=== PATIENT | female | born 1970 | race Caucasian/White ===

== ENCOUNTER → 2018-04-05 16:15 | Outpatient (CLI) | payer BC, SELFPAY ==
--- NOTE | 2018-04-05 16:17 | MM_ITS ---
MM Dig screening mamm BI w/CAD ORDERING PHYSICIAN : Tesfaye Avery MD PATIENT AGE: 48 years GENDER: Female COMPARISON: August,, July 2015, February 2013 INDICATION: ITS.REASON: Routine Screening Mammogram no hormones. No new complaints. Family history. Mother breast cancer age 58. Maternal grandmother in her 60s. Maternal aunt in her 50s TECHNIQUE: Standard CC and MLO images were obtained. R2 CAD reviewed. FINDINGS: Moderate density breast with heterogeneous breast pattern. Prior films are very helpful in supporting this pattern is similar. This asymmetric architecture appears stable with no significant new findings. RIGHT BREAST:Stable follow-up in one year. No areas of concern LEFT BREAST:The asymmetric island of glandular tissue in the deep left breast towards axilla is unchanged IMPRESSION: Stable mammogram No significant interval change. Stable asymmetric heterogeneous breast pattern but with no significant new areas of concern BI-RADS Category: 2 Benign Finding(s) RECOMMENDED FOLLOW-UP: 1YR 1 YEAR FOLLOW-UP (A letter has been sent to the patient regarding results of the study.)
== END ==
PROVIDERS: Family Provider Family Medicine; PCP Family Medicine; Visit Provider Nurse Practitioner Obstetrics & Gynecology
DX: Z12.31 Encounter for screening mammogram for malignant neoplasm of breast (principal)
CPT/HCPCS: 77067

== ENCOUNTER → 2019-05-09 07:58 | Outpatient (CLI) | payer BC, SELFPAY ==
[2019-05-09 08:16] LABS: Basophils % 0.6 % (0.1-2.0); Eosinophils # 0.2 K/mm3 (0.0-0.4); Eosinophils % 3.6 % (0.1-12.0); Hematocrit 41.1 % (37.0-47.0); Hemoglobin 13.2 g/dL (12.2-16.2); Lymphocytes # 1.5 K/mm3 (0.7-4.5); Lymphocytes % 29.2 % (10-50); Mean Corpuscular HGB Conc 32.2 g/dL (31.8-35.4); Mean Corpuscular Volume 93.1 fl (81-99); Mean Platelet Volume 8.3 fl (7.4-10.4); Monocytes # 0.3 K/mm3 (0.1-1.0); Monocytes % 6.2 % (1.7-9.3); Neutrophils % 60.4 % (37.0-80.0); Platelet Count 275 K/mm3 (142-424); Red Blood Count 4.41 M/mm3 (4.20-5.40)
[2019-05-09 08:59] LABS: Alanine Aminotransferase 69 U/L (12-78); Albumin Level 4.1 gm/dL (3.4-5.0); Albumin/Globulin Ratio 1.4 (1.1-1.8); Alkaline Phosphatase 110 U/L (46-116); Anion Gap 13.4 mEq/L (5-15); Aspartate Amino Transferase 27 U/L (15-37); Bilirubin,Total 0.5 mg/dL (0.2-1.0); Blood Urea Nitrogen 17 mg/dL (7-18); Calcium 9.1 mg/dL (8.5-10.1); Carbon Dioxide 27 mmol/L (21.0-32.0); Chloride 104 mmol/L (98-107); Chol/HDL Ratio 5.4 (1-3.5); Cholesterol 199 mg/dL (140-200); Estimated Glomerular Filt Rate 66 ml/min (>60); GFR (African American) 80 ML/MIN (>60); Globulin 2.9 gm/dl (1.3-3.2); Glucose 109 mg/dL (74-106); HDL Cholesterol 37 mg/dL (29-89); LDL Cholesterol 135 mg/dL (0-130); Potassium 4.4 mmoL/L (3.5-5.1); Sodium 140 mmol/L (136-145); Triglycerides 137 mg/dL (30-200); VLDL Cholesterol 27 mg/dL (0-40)
== END ==
PROVIDERS: Visit Provider Family Medicine
DX: Z00.00 Encounter for general adult medical examination without abnormal findings (principal)
CPT/HCPCS: 36415; 80053; 80061; 85025

== ENCOUNTER → 2019-06-10 16:41 | Outpatient (CLI) | payer BC, SELFPAY ==
--- NOTE | 2019-06-10 16:44 | MM_ITS ---
PROCEDURE: MM DIG SCREENING MAMM BI W/CAD CLINICAL INDICATION: routine screening mammogram There is a history of breast cancer in patient's mother maternal grandmother and aunt all diagnosed after menopause COMPARISON: [facility]MSB DIG MAMM-SCREEN JAGDISH from 07/27/2015 [facility] DIG MAMM-SCREEN JAGDISH from 08/25/2016 [facility] MM Dig screening mamm BI w/CAD from 04/05/2018 TECHNIQUE: Standard CC and MLO images were obtained. R2 CAD reviewed. FINDINGS: Moderate somewhat heterogenic fibroglandular densities are seen in the central portions of both breast slightly more diffuse right breast than left. There is no new or suspicious lesion in either breast and no suspicious microcalcifications. IMPRESSION: Fibrofatty parenchyma with no suspicious lesions seen BI-RAD Category: 1 Negative FOLLOW-UP: 1YR 1 Year Follow-up (A letter has been sent to the patient regarding results of the study.) Dictated by: Dr. Nagi Harrison MD 06/14/2019 16:[address] Nagi Harrison MD in [place] 06/14/2019 16:01
== END ==
PROVIDERS: PCP Family Medicine; Visit Provider Nurse Practitioner Obstetrics & Gynecology
DX: Z12.31 Encounter for screening mammogram for malignant neoplasm of breast (principal)
CPT/HCPCS: 77067

== ENCOUNTER → 2021-05-06 07:40 | Outpatient (CLI) | payer BC, SELFPAY ==
[2021-05-06 08:04] LABS: Basophils % 0.9 % (0.1-2.0); Eosinophils # 0.2 K/mm3 (0.0-0.4); Eosinophils % 4.4 % (0.1-12.0); Hematocrit 41.7 % (37.0-47.0); Hemoglobin 13.7 g/dL (12.2-16.2); Lymphocytes # 1.8 K/mm3 (0.7-4.5); Lymphocytes % 38.1 % (10-50); Mean Corpuscular HGB Conc 32.9 g/dL (31.8-35.4); Mean Corpuscular Hemoglobin 29.8 pg (27.0-31.2); Mean Corpuscular Volume 90.5 fl (81-99); Mean Platelet Volume 9.6 fl (7.4-10.4); Monocytes # 0.3 K/mm3 (0.1-1.0); Monocytes % 5.5 % (1.7-9.3); Neutrophils # 2.5 K/mm3 (1.8-7.8); Neutrophils % 51.1 % (37.0-80.0); Platelet Count 281 K/mm3 (142-424); Red Blood Count 4.61 M/mm3 (4.20-5.40); White Blood Count 4.8 K/mm3 (4.8-10.8)
[2021-05-06 09:09] LABS: Chloride 105 mmol/L (98-107); Potassium 4.4 mmoL/L (3.5-5.1); Sodium 141 mmol/L (136-145)
[2021-05-06 09:11] LABS: Alanine Aminotransferase 57 U/L (12-78); Aspartate Amino Transferase 33 U/L (14-36); Blood Urea Nitrogen 19 mg/dl (7-17); Estimated Glomerular Filt Rate 66 ml/min (>60); GFR (African American) 80 ML/MIN (>60)
[2021-05-06 09:12] LABS: Albumin Level 4.6 g/dl (3.5-5.0); Albumin/Globulin Ratio 1.8 (1.1-1.8); Alkaline Phosphatase 103 U/L (38-126); Anion Gap 13.4 mEq/L (5-15); Bilirubin,Total 0.3 mg/dl (0.2-1.3); Calcium 9.5 mg/dl (8.4-10.2); Carbon Dioxide 27 mmol/L (22.0-30.0); Cholesterol 204 mg/dl (140-200); Globulin 2.6 g/dL (1.3-3.2); Glucose 103 mg/dl (74-100); HDL Cholesterol 41 mg/dl (40-60); Total Protein,Serum 7.2 g/dl (6.3-8.2); Triglycerides 187 mg/dl (30-150); VLDL Cholesterol 37 mg/dL (0-40)
[2021-05-06 09:24] LABS: Direct LDL Cholesterol 113.33 mg/dL (100-129)
== END ==
PROVIDERS: Visit Provider Family Medicine
DX: E78.5 Hyperlipidemia, unspecified (principal); M25.50 Pain in unspecified joint; K58.2 Mixed irritable bowel syndrome
CPT/HCPCS: 36415; 80053; 80061; 85025

== ENCOUNTER → 2021-05-11 15:46 | Outpatient (CLI) | payer BC, SELFPAY ==
--- NOTE | 2021-05-11 15:47 | MM_ITS ---
PROCEDURE: MM DIG SCREENING MAMM BI W/CAD Digital Breast Tomosynthesis Included CLINICAL INDICATION: Routine Screening Mammogram There is a history of breast cancer in the patient's mother maternal grandmother and aunt all diagnosed after menopause. COMPARISON: MG DMSB DIG MAMM-SCREEN JAGDISH from 08/25/2016 MG [facility] MM Dig screening mamm BI w/CAD from 04/05/2018 MG MM DIG SCREENING MAMM BI W/CAD from 06/10/2019 TECHNIQUE: Standard CC and MLO images and 3D Tomosynthesis was obtained. R2 CAD reviewed. FINDINGS: Moderate diffuse fibroglandular densities seen central portions both breasts. There are no CAD markings. There is a small benign-appearing round nodular density just deep to the nipple right breast and likely a small cyst. There is no suspicious lesion and no suspicious microcalcifications. IMPRESSION: Stable moderate breast density with no suspicious lesions seen BI-RAD Category: 2 Benign Finding(s) FOLLOW-UP: 1YR 1 Year Follow-up (A letter has been sent to the patient regarding results of the study.) Dictated by: Dr. Nagi Harrison MD 05/13/2021 08:48 Dr. Nagi Harrison MD in [place] 05/13/2021 08:48
== END ==
PROVIDERS: PCP Family Medicine; Visit Provider Nurse Practitioner Obstetrics & Gynecology
DX: Z12.31 Encounter for screening mammogram for malignant neoplasm of breast (principal)
CPT/HCPCS: 77063; 77067

== ENCOUNTER → 2022-07-10 07:24 | Outpatient (CLI) | payer BC, SELFPAY ==
[2022-07-10 07:56] LABS: Basophils # 0.1 K/mm3 (0-0.2); Basophils % 1.6 % (0.1-2.0); Eosinophils # 0.2 K/mm3 (0.0-0.4); Eosinophils % 5.2 % (0.1-12.0); Hematocrit 43.2 % (37.0-47.0); Hemoglobin 13.8 g/dL (12.2-16.2); Lymphocytes # 1.8 K/mm3 (0.7-4.5); Lymphocytes % 41.3 % (10-50); Mean Corpuscular Hemoglobin 29.2 pg (27.0-31.2); Mean Corpuscular Volume 91.3 fl (81-99); Mean Platelet Volume 8.7 fl (7.4-10.4); Monocytes # 0.2 K/mm3 (0.1-1.0); Monocytes % 5.3 % (1.7-9.3); Neutrophils % 46.5 % (37.0-80.0); Platelet Count 306 K/mm3 (142-424); Red Blood Count 4.73 M/mm3 (4.20-5.40); Red Cell Distribution Width 13.3 % (11.5-17.5); White Blood Count 4.2 K/mm3 (4.8-10.8)
[2022-07-10 08:41] LABS: Chloride 104 mmol/L (98-107); Potassium 4.1 mmoL/L (3.5-5.1); Sodium 140 mmol/L (136-145)
[2022-07-10 08:43] LABS: Alanine Aminotransferase 71 U/L (12-78); Albumin Level 4.7 g/dl (3.5-5.0); Alkaline Phosphatase 142 U/L (38-126); Anion Gap 14.1 mEq/L (5-15); Aspartate Amino Transferase 41 U/L (14-36); Bilirubin,Total 0.5 mg/dl (0.2-1.3); Blood Urea Nitrogen 22 mg/dl (7-17); Carbon Dioxide 26 mmol/L (22.0-30.0); Estimated Glomerular Filt Rate 88 ml/min (>60); GFR (African American) 106 ML/MIN (>60); Globulin 2.3 g/dL (1.3-3.2)
[2022-07-10 08:44] LABS: Calcium 9.3 mg/dl (8.4-10.2); Chol/HDL Ratio 5.7 (1-3.5); Cholesterol 235 mg/dl (140-200); Glucose 103 mg/dl (74-100); HDL Cholesterol 41 mg/dl (40-60); Triglycerides 213 mg/dl (30-150); VLDL Cholesterol 43 mg/dL (0-40)
[2022-07-10 08:55] LABS: Direct LDL Cholesterol 137.16 mg/dL (100-129)
== END ==
PROVIDERS: PCP Family Medicine; Visit Provider Family Medicine
DX: E78.5 Hyperlipidemia, unspecified (principal); Z85.20 Personal history of malignant neoplasm of unspecified respiratory organ
CPT/HCPCS: 36415; 80053; 80061; 85025

== ENCOUNTER → 2022-07-17 15:42 | Outpatient (CLI) | payer BC, SELFPAY ==
--- NOTE | 2022-07-17 15:42 | MM_ITS ---
PROCEDURE INFORMATION: Exam: MG Bilateral Screening 3D Mammography Exam date and time: 07/17/2022 3:35 PM Age: 52 years old Clinical indication: Screening. Personal history of melanoma. Her mother had breast cancer at age 58, maternal grandmother at 60, and maternal aunt at 50. TECHNIQUE: Imaging protocol: Bilateral Screening tomosynthesis and 2D mammography including computer-aided detection (CAD) when performed. COMPARISON: 1. MG MM DIG SCREENING MAMM BI W/CAD 05/11/2021 3:55 PM 2. MG MM DIG SCREENING MAMM BI W/CAD 06/10/2019 4:54 PM 3. MG [facility] MM Dig screening mamm BI w/CAD 04/05/2018 4:24 PM 4. 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 Mass: None. Architectural distortion: None. Calcifications: No suspicious calcifications. Asymmetric density: Stable focal asymmetry in the left upper outer quadrant, posterior 3rd, since 2008. Skin thickening: None. Axillary adenopathy: None. IMPRESSION: No mammographic evidence of malignancy. Annual screening is recommended unless otherwise clinically indicated. ASSESSMENT: BI-RADS Category 2: Benign
== END ==
PROVIDERS: PCP Family Medicine; Visit Provider Nurse Practitioner Obstetrics & Gynecology
DX: Z12.31 Encounter for screening mammogram for malignant neoplasm of breast (principal)
CPT/HCPCS: 77063; 77067

== ENCOUNTER → 2023-07-30 16:43 | Outpatient (CLI) | payer BC, SELFPAY ==
--- NOTE | 2023-07-30 16:46 | MM_ITS ---
PROCEDURE INFORMATION: Exam: MG Bilateral Screening 3D Mammography Exam date and time: 07/30/2023 4:33 PM Age: 53 years old Clinical indication: Screening examination TECHNIQUE: Imaging protocol: Bilateral Screening tomosynthesis and 2D mammography including computer-aided detection (CAD) when performed. COMPARISON: 1. MG MM DIG SCREENING MAMM BI W/CAD 07/17/2022 3:35 PM 2. MG MM DIG SCREENING MAMM BI W/CAD 05/11/2021 3:55 PM FINDINGS: MAMMOGRAPHY: Breast composition: There are scattered areas of fibroglandular density. Mass: None. Architectural distortion: None. Calcifications: No suspicious calcifications. Asymmetric density: None. Skin thickening: None. Axillary adenopathy: None. IMPRESSION: No mammographic evidence of malignancy. Annual screening is recommended unless otherwise clinically indicated. ASSESSMENT: BI-RADS Category 1: Negative
== END ==
PROVIDERS: PCP Family Medicine; Visit Provider Nurse Practitioner Obstetrics & Gynecology
DX: Z12.31 Encounter for screening mammogram for malignant neoplasm of breast (principal)
CPT/HCPCS: 77063; 77067

== ENCOUNTER 2024-01-18 09:13 | Outpatient (CLI) | payer BC, SELFPAY ==
[2024-01-18 09:44] LABS: Basophils # 0.1 K/mm3 (0-0.2); Basophils % 1.2 % (0.1-2.0); Eosinophils # 0.2 K/mm3 (0.0-0.4); Eosinophils % 4.3 % (0.1-12.0); Hematocrit 43.3 % (37.0-47.0); Lymphocytes # 1.4 K/mm3 (0.7-4.5); Lymphocytes % 35.4 % (10-50); Mean Corpuscular HGB Conc 32.3 g/dL (31.8-35.4); Mean Corpuscular Hemoglobin 30.7 pg (27.0-31.2); Mean Platelet Volume 8.8 fl (7.4-10.4); Monocytes # 0.2 K/mm3 (0.1-1.0); Monocytes % 4.8 % (1.7-9.3); Neutrophils # 2.2 K/mm3 (1.8-7.8); Neutrophils % 54.4 % (37.0-80.0); Platelet Count 259 K/mm3 (142-424); Red Blood Count 4.56 M/mm3 (4.20-5.40); Red Cell Distribution Width 13.3 % (11.5-17.5); White Blood Count 4.1 K/mm3 (4.8-10.8)
[2024-01-18 11:03] LABS: Alanine Aminotransferase 100 U/L (12-78); Albumin Level 4.6 g/dl (3.5-5.0); Albumin/Globulin Ratio 1.8 (1.1-1.8); Alkaline Phosphatase 136 U/L (38-126); Anion Gap 13.3 mEq/L (5-15); Aspartate Amino Transferase 58 U/L (14-36); Bilirubin,Total 0.7 mg/dl (0.2-1.3); Blood Urea Nitrogen 20 mg/dl (7-17); Calcium 9.5 mg/dl (8.4-10.2); Carbon Dioxide 26 mmol/L (22.0-30.0); Chloride 105 mmol/L (98-107); Chol/HDL Ratio 4.9 (1-3.5); Cholesterol 241 mg/dl (140-200); Estimated Glomerular Filt Rate 75 ml/min (>60); GFR (African American) 90 ML/MIN (>60); Globulin 2.6 g/dL (1.3-3.2); Glucose 105 mg/dl (74-100); HDL Cholesterol 49 mg/dl (40-60); Potassium 4.3 mmoL/L (3.5-5.1); Sodium 140 mmol/L (136-145); Total Protein,Serum 7.2 g/dl (6.3-8.2); Triglycerides 193 mg/dl (30-150); VLDL Cholesterol 39 mg/dL (0-40)
== END 2024-01-18 23:59 | disposition home or self-care (01) ==
LOC: LAB 09:18
PROVIDERS: PCP Family Medicine; Visit Provider Family Medicine
DX: E78.5 Hyperlipidemia, unspecified (principal); G43.909 Migraine, unspecified, not intractable, without status migrainosus
CPT/HCPCS: 36415; 80053; 80061; 85025

== ENCOUNTER 2024-01-22 16:00 | Outpatient (CLI) | payer BC, SELFPAY ==
--- NOTE | 2024-01-22 16:12 | XR_ITS ---
FINAL REPORT CLINICAL HISTORY: RIGHT SHOULDER PAIN COMPARISON: None FINDINGS: RIGHT SHOULDER: 3 views of the right shoulder were obtained. There is no acute fracture or dislocation. There is mild acromioclavicular degenerative change present. There is no soft tissue abnormality. IMPRESSION: No acute fracture Mild acromioclavicular degenerative change. Reviewed, Interpreted and Dictated by Bjorn Nelson III, MD Transcribed by Terri Vital Authenticated and [facility]
== END 2024-01-22 23:59 | disposition home or self-care (01) ==
LOC: RAD 16:00
PROVIDERS: PCP Family Medicine; Visit Provider Family Medicine
DX: M25.511 Pain in right shoulder (principal)
CPT/HCPCS: 73030

== ENCOUNTER 2024-02-12 13:48 | Outpatient (RCR) | payer BC, SELFPAY | END 2024-02-12 15:00 | disposition home or self-care (01) | LOC: OT 13:48 | PROVIDERS: Visit Provider Family Medicine | DX: M25.511 Pain in right shoulder (principal) | CPT/HCPCS: 97165 ==

== ENCOUNTER 2024-06-09 15:00 | Outpatient (RCR) | payer BC, SELFPAY ==
--- NOTE | 2024-04-22 15:57 | HMH.OTOPEV ---
OT Inpatient Evaluation Rehab OT Outpatient Eval Start: 04/22/24 15:43 Freq: Status: Active Protocol: Document 04/22/24 15:44 RMARSHALL (Rec: 04/22/24 15:57 [facility] [id number]) E-signed By Luke Krishnamurthy, OT Outpatient Therapy Subjective History Subjective History Pt is a 54 year old female who reports to therapy for initial evaluation to right shoulder. Pt began having right shoulder pain ~1 year ago and does not recall a specific injury causing her pain to begin. Pt's pain in right shoulder has progressively become worse in the recent months and is now experiencing constant pain. Pt has had an x-ray completed that showed mild degenerative changes. After evaluation, pt does demonstrate with decreased AROM and strength at right shoulder. Pt is left hand dominant. 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 Pt will continue to be seen twice a week in order to address all right shoulder deficits. New diagnosis of cancer in past 12 No months? Chief Complaint Pain,Stiff,Weakness Symptom Type Ache,Throb,Sharp Symptoms Relieved By Nothing Symptoms Aggravated By Physical Activity,Lifting Prior Functional Limitations None Current Functional Limitations Reaching,Lifting,Sleeping Symptom Description Constant but Variable Level of pain today (0-10) 1 Pain scale - at its best (0-10) 1 Pain scale - at its worst (0-10) 6 Shoulder/Elbow Eval Shoulder Objective Measurements Shoulder ROM Right Shoulder Abduction Active Range of 60 degrees Motion (degrees) Shoulder Flexion Active Range of Motion 120 degrees (degrees) Query Text: Shoulder External Rotation Active Range 58 degrees of Motion (degrees) Shoulder Internal Rotation Active Range 70 degrees of Motion (degrees) Shoulder MMT Shoulder Abduction Strength Grade 4- Good- Shoulder Flexion Strength Grade 4- Good- Shoulder External Rotation Strength 4- Good- Grade Shoulder Internal Rotation Strength 4- Good- Grade Shoulder Strength Patient Testing Sitting Position Shoulder Special Tests impingement sign present shoulder exam right standard Shoulder Empty Can (Supraspinatus) Test Positive Right Shoulder Reza-Radames Impingement Positive Right Test Shoulder Neer Impingement Test Positive Right Elbow Objective Measurements QuickDASH Activities Please rate your ability to do the following activities in the last week by selecting the number below the appropriate response. 1. Open a tight or new jar. No difficulty 2. Do heavy chemical research worker (e.g., wash Mild difficulty weiss, floors). 3. Carry a shopping bag or briefcase. No difficulty 4. Wash your back. No difficulty 5. Use a knife to cut food. No difficulty 6. Recreational activities in which you Mild difficulty take some force or impact through your arm, shoulder, or hand (e.g., golf, hammering, tennis, etc.). 7. During the past week, to what extent Moderately has your arm, shoulder or hand problem interfered with your normal social activities with family, friends, neighbors or groups? 8. During the past week, were you Moderately limited limited in your work or other regular daily activites as a result of your arm, shoulder or hand problem? 9. Arm, shoulder or hand pain. Moderate 10. Tingling (pins and needles) in your None arm, shoulder or hand. 11. During the past week, how much Mild difficulty difficulty have you had sleeping because of the pain in your arm, shoulder or hand? Quick DASH 20 Work Module (optional) The following questions ask about the impact of your arm, shoulder or hand problem on your ability to work (including homemaking if that is your main work role). 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 Yes 1. Using your usual technique for your No difficulty work? 2. Doing your usual work because of arm, No difficulty shoulder or hand pain? 3. Doing your work as well as you would No difficulty like? 4. Spending your usual amount of time No difficulty doing your work? Quick Dash Work Module Score 4 OT Outpatient Assessment Impairments Problems/Impairments Palpation Tenderness,Impaired Range of Motion,Impaired Strength,Impaired Endurance, Impaired Lifting,Impaired Dressing,Impaired Household Care,Subjective C/O Pain Prognosis Rehab Potential Good Clinical Impression Consistent with Diagnosis Yes Short Term Goals Number of Weeks 3 Increase Range of Motion Yes: Flex: 140 Abd: 110 ER: 75 Increase Strength Yes: 4/5 throughout right shoulder Increase Endurance Yes: Pt will tolerate R shoulder exercises for ~20 minutes prior to rest. Decrease Subjective C/O Pain Yes: 3/10 at worst Patient to be Ind w/ HEP Yes: AROM/AAROM exercises Improve Quick Dash Score Yes: Activities: 15 or below [facility] Goals Number of Weeks 6 Increase Range of Motion Yes: Flex: 150 Abd: 130 ER: 80 Increase Strength Yes: 5/5 throughout right shoulder Increase Endurance Yes: Pt will tolerate R shoulder exercises for ~30 minutes prior to rest. Decrease Subjective C/O Pain Yes: 2/10 at worst Patient to be Ind w/ Advanced HEP Yes: Advanced strengthening Improve Quick Dash Score Yes: Activities: 10 or below Outpatient Therapy Plan of Care Treatment Plan May Include Therapeutic Exercise Including Home Yes Exercise Program Manual Therapy Techniques Yes Neuromuscular Re-education Yes Therapeutic Activities to Return to Yes Previous Functional/Work Level ADL/Self Care Education Yes Thermal Modalities Yes Electrical Stimulation Yes Ultrasound/Phonophoresis Yes Iontophoresis Yes Orthotics/Bracing/Splinting Yes Massage Yes Eval/Re-Eval Yes Frequency Times per week 2 Duration Number of Weeks 6 Addendums This patient is a candidate for social No or vocational rehab? Patient/Guardian verbally acknowledges Yes understanding of treatment program and consents to further treatment? Patient/Guardian verbally acknowledges Yes understanding of diagnosis, prognosis and goals for treatment? Eval Complexity OT Charge 57193 - Moderate Complexity PHYSICIAN CERTIFICATION: I certify the specified therapy services for Alisia Cannon are required, authorized, and reviewed every 30 days.
== END 2024-06-09 23:59 | disposition home or self-care (01) ==
LOC: OT 15:00
PROVIDERS: Visit Provider Family Medicine
DX: M25.511 Pain in right shoulder (principal)
CPT/HCPCS: 97014; 97110; 97140; 97164; 97166; 97530; G0283

== ENCOUNTER 2024-08-21 12:47 | Outpatient (CLI) | payer BC, SELFPAY ==
--- NOTE | 2024-08-21 12:48 | MM_ITS ---
PROCEDURE INFORMATION: Exam: MG Bilateral Screening 3D Mammography Exam date and time: 08/21/2024 1:07 PM Age: 54 years old Clinical indication: Screening. Her mother had breast cancer at age 58, maternal grandmother at 60, and maternal aunt at 50. TECHNIQUE: Imaging protocol: Bilateral Screening tomosynthesis and 2D mammography including computer-aided detection (CAD) when performed. COMPARISON: 1. MG MM DIG SCREENING MAMM BI W/CAD 07/30/2023 4:33 PM 2. MG MM DIG SCREENING MAMM BI W/CAD 07/17/2022 3:35 PM 3. MG MM DIG SCREENING MAMM BI W/CAD 05/11/2021 3:55 PM 4. MG MM DIG SCREENING MAMM BI W/CAD 06/10/2019 4:54 PM FINDINGS: MAMMOGRAPHY: Breast composition: There are scattered areas of fibroglandular density. Mass: No suspicious mass. Architectural distortion: None. Calcifications: No suspicious calcifications. Asymmetric density: None. Skin thickening: None. Axillary adenopathy: None. IMPRESSION: No mammographic evidence of malignancy. Annual screening is recommended unless otherwise clinically indicated. ASSESSMENT: BI-RADS Category 1: Negative.
--- NOTE | 2024-08-21 12:48 | US_ITS ---
PROCEDURE: US TRANSVAGINAL CLINICAL INDICATION: Post Menopausal Bleeding COMPARISON: No exams were available for comparison FINDINGS: Transvaginal sonographic images of the pelvis were obtained. UTERUS: 5.8cm x 4.2cmx 3.2cm Retroverted and retroflexed with a combined endometrial thickness of 5.9mm. There is a fibroid in the anterior uterus measuring 1.5 cm x 1.2 cm x 1.6cm. LEFT OVARY: [id number] with a volume of 1ml. RIGHT OVARY: 2cmx [id number] with a volume of 2.9ml. Both ovaries are seen and appear normal. Doppler flow to both ovaries are seen. There is no fluid in the cul-de-sac. IMPRESSION: 1. Retroverted retroverted and retroflexed uterus normal in shape and size. There is a fibroid anteriorly at the fundus that measures 1.5 cm. 2. Both ovaries are seen and appear atrophic. 3. No fluid in the cul-de-sac. Dictated by: Tesfaye Avery MD 08/22/2024 04:09 Tesfaye Avery MD in [place] 08/22/2024 04:09
== END 2024-08-21 23:59 | disposition home or self-care (01) ==
LOC: RAD 12:48
PROVIDERS: PCP Family Medicine; Visit Provider Nurse Practitioner Obstetrics & Gynecology
DX: N95.0 Postmenopausal bleeding (principal); Z12.31 Encounter for screening mammogram for malignant neoplasm of breast
CPT/HCPCS: 76830; 77063; 77067

== ENCOUNTER 2025-08-17 15:37 | Outpatient (CLI) | payer BC, SELFPAY ==
[2025-08-17 16:27] LABS: Hemoglobin A1C 5.7 % (4.0-6.0)
== END 2025-08-17 23:59 | disposition home or self-care (01) ==
LOC: LAB 15:39
PROVIDERS: PCP Family Medicine; Visit Provider Physician Assistant
DX: R73.09 Other abnormal glucose (principal)
CPT/HCPCS: 36415; 83036

== ENCOUNTER 2025-08-19 07:16 | Outpatient (CLI) | payer BC, SELFPAY ==
--- OUTSIDE RECORDS SUMMARY | 2024-07-01 10:45 | XMS_ITS ---
Author Organization Gianluca Address [facility]0 [facility] [address] [place] [phone] Care Team Providers Care Clinical Social Work Aide Name Role Phone Fransisco Franks Primary Care Provider Allergies No Known Allergies Reason For Referral [...] in 2 hours 07/28/2022 Active Vital Signs Weight 221.2 lbs 07/01/2024 Blood pressure systolic 124 mm Hg 07/01/20 24 Blood pressure diastolic 80 mm Hg 024 Heart Rate 76 /min 07/01/2024 Height 68 in 07/01/2024 BMI 33.63 kg/m2 07/01/2024 Encounters Encounter Location Date Provider Diagnosis [facility] 36 [facility] [address] [place] [phone] 07/01/2024 Fransisco Franks Impingement syndrome of right [...] * Alisia CANNONDOB:1970 ( 55 yo F)Acc No.[id number]:07/01/2024 Progress Notes Patient: Alisia RODRIGUEZ Provider: Fransisco Franks M.D. :1970 A ge:54 Y S ex:Female Date:07/01/2024 Address: [facility], [id number] Subjective: * Chief Complaints: * 1 . [...] * Images: Billing Information: * Visit Code: 73230 Office Visit, Est Pt., Level 3. * Procedure Codes: * Electronic signature of Fransisco Franks MD on 08/19/2025 at 07:19 AM EST Sign off status: Pending * Provider: Fransisco Franks M.D. Date: Generated for Duy concepcion/Amelia/Rafael on: 10/20/2024 07:19 AM EST History and Physical Notes * Examination [...]
--- OUTSIDE RECORDS SUMMARY | 2025-07-31 08:45 | XMS_ITS ---
Author Organization [facility] Address 1210 [facility] [address] [place] [id number] Care Team Providers Care Officer Lieutenant Name Role Phone Fransisco Franks Primary Care Provider [phone] Joyce Espinoza [phone] Allergies No Known Allergies REASON FOR VISIT check up Medications Medication SIG (Take, Route, Frequency, Duration) Notes Start Date End Date Status Zomig 5 MG 1 tab(s) orally once . May repeat x1 in 2 hours Active Vital Signs Weight 221 lbs 07/31/2025 Blood pressure systolic 126 mm Hg 07/31/20 25 Blood pressure diastolic 80 mm Hg 025 Heart Rate 98 /min 07/31/2025 Height 68 in 07/31/2025 BMI 33.6 kg/m2 07/31/2025 Encounters Encounter Location Date Provider Diagnosis [facility] [address] [place] [id number] 07/31/2025 Joyce Espinoza Migraine headache G43.909 ; Hx of melanoma of skin Z85.820 ; Dyslipidemia E78.5 and Colon cancer screening Z12.11 Assessments Encounter Date Diagnosis (ICD Code) Assessment Notes Treatment Notes Treatment Clinical Notes Section Notes 07/31/2025 Migraine headache (ICD-10 - G43.909) 07/31/2025 Hx of melanoma of skin (ICD-10 - Z85.820) 07/31/2025 Dyslipidemia (ICD-10 - E78.5) Patient will come back for fasting labs: CBC, CMP, Lipid, TSH with reflex to Free T4 07/31/2025 Colon cancer screening (ICD-10 - Z12.11) Plan Of Treatment Medication Medication Name Sig Start Date Stop Date Notes Zomig 5 MG 1 tab(s) orally once . May repeat x1 in 2 hours Treatment Notes Assessment Notes Dyslipidemia Patient will come ba ck for fasting labs: CBC, CMP, Lipid, TSH with reflex to Free T4 Next Appt Details Follow Up: via phone to repo rt test results, Reason: Progress Notes * Alisia CANNONDOB:1970 ( 55 yo F)Acc No.[id number]:07/31/2025 Progress Notes Patient: Alisia RODRIGUEZ Provider: SHANTAL Ferguson :1970 A ge:55 Y S ex:Female Date:07/31/2025 Address:[place] [address], [id number] Pcp:Fransisco Franks Subjective: * Chief Complaints: * 1 . Check up. * HPI: H PI: Patient is here today for c heckup and refills. Pt is not fasting. Pt states she needs refills on meds. Pt states she is doing good with no new concerns today.? * ROS: D ERMATOLOGY: no R amanda. [...] Allergies: N .K.D.A. Objective: * Vitals: W t: 221, Temp: 98.0, BP: 126/80, HR: 98, Nurse: jenelle, Ht: 68, BMI:33.6. * Examination: G eneral Examination: General Appearance: N AD. H EENT: u nremarkable.?Oral cavity: n o lesions, mucosa moist and WNL, no erythema. N loni: s upple, no lymphadenopathy. C hest: n ormal shape and expansion. H eart: R SR. L ungs: c lear to auscultation. A bdomen: b owel sounds present, soft and nontender. N eurologic Exam: I ntact, gait normal. S kin: n ormal, no rash. P eripheral pulses: n ormal (2+) bilaterally. E xtremities: n o leg edema. Assessment: * Assessment: 1. M igraine headache - G43.909 (Primary) 2 . H x of melanoma of skin - Z85.820 3 . D yslipidemia - E78.5 4 . C olon cancer screening - Z12.11 Plan: * Treatment: 2. D yslipidemia Notes: Patient will come back for fasting labs: CBC, CMP, Lipid, TSH with reflex to Free T4 ? * Follow Up: v ia phone to report test results * Images: Billing Information: * Visit Code: 75348 Office Visit, Est Pt., Level 4. * Procedure Codes: * Electronic signature of SHANTAL Chisholm on 08/19/2025 at 07:17 AM EST Sign off status: Pending * Provider: SHANTAL Ferguson Date: 09/30/2024 Generated for Duy concepcion/Amelia/Juanitting on: 10/20/2024 07:17 AM EST History and Physical Notes * HPI (History of Present Illness) Category Sub-Category Detail Notes Category Not es HPI Patient is here today for checku p and refills. Pt is not fasting. Pt states she needs refills on meds. Pt states she is doing good with no new concerns today Examination Category Sub-Category Detail Notes Category Not es General Examination HEENT: unremarkable Heart: RSR Lungs: clear to auscultatio n Abdomen: bowel sounds present , soft and nontender Extremities: no leg edema General Appearance: NAD Skin: normal, no rash Neurologic Exam: Intact, gait normal Neck: supple, no lymphaden opathy Oral cavity: no lesions, mucosa m oist and WNL, no erythema Peripheral pulses: normal (2+) bilatera lly Chest: normal shape and exp ansion
--- OUTSIDE RECORDS SUMMARY | 2025-08-10 03:10 | XMS_ITS ---
Author Organization [facility] Address [address] [facility] [address] [place] [id number] Care Team Providers Care Obedience Trainer Name Role Phone Fransisco Franks Primary Care Provider [phone] Joyce Espinoza Unavailable [phone] Allergies No Known Allergies Results Component Value [...] 45 Performing Lab: Notes/Report: Test performed by [facility] [address] [place] [address] , [address], [place] [address] Heaven Jo MD, PhD, AP, Press Shop Supervisor CLIA: [id number] Sodium 140 135-145 mmol/L Potassium 4.1 3.5-5.3 [...] 3.87 Performing Lab: Notes/Report: Test performed by [facility] [address] [place] [address] , [address], [place] [address] Heaven Jo MD, PhD, [facility], Press Shop Supervisor CLIA: [id number] Lipid Panel Footnote See Below *Based on optimal reference values. Please refer to the DOS for additional information regarding diagnostic lipid reference ranges, patient management based on the recently updated lipid guidelines ([place] [employer]/[place] [employer] Association Task Force on Clinical Practice [...] Interpretation:Normal Performing Lab: Notes/Report: Test performed by [facility] [address] [place] [address] , [address], [place] [address] Heaven Jo MD, PhD, [facility], Press Shop Supervisor CLIA: [id number] TSH reflex to FT4 0.78 0.43-5.25 mU/L REASON FOR VISIT bloodwork Encounters Encounter Location Date Provider Diagnosis [facility] [address] [facility] [address] [place] [id number] 08/10/2025 Joyce Espinoza Dyslipidemia E78.5 a nd Screening for thyroid disorder Z13.29 Assessments Encounter Date Diagnosis (ICD Code) Assessment Notes Treatment Notes Treatment Clinical Notes Section Notes 08/10/2025 Dyslipidemia (ICD-10 - E78.5) 08/10/2025 Screening for thyroid disorder (ICD-10 - Z13.29) Plan Of Treatment No Information Progress Notes * Alisia CANNONDOB:1970 ( 55 yo F)Acc No.[id number]:08/10/2025 Patient: Alisia RODRIGUEZ Provider: SHANTAL Ferguson :1970 A ge:55 Y S ex:Female Date:08/10/2025 Address[place] [id number] Pcp:Fransisco Franks Subjective: * Chief Complaints: * [...] Codes: 8 5025 CBC WITH AUTO DIFF, 11820 VENIPUNCT, ROUTINE* * Images: Billing Information: * Visit Code: * Procedure Codes: 23930 CBC WITH AUTO DIFF. 29224 VENIPUNCT, ROUTINE*. * Electronic signature of SHANTAL Chisholm on 08/19/2025 at 07:18 AM EST Sign off status: Pending * Provider: SHANTAL Ferguson Date: 1 10/11/2024 Generated for Duy concepcion/Amelia/eTransmitting on: 10/20/2024 07:18 AM EST
--- OUTSIDE RECORDS SUMMARY | 2025-08-12 05:48 | XMS_ITS ---
Author Organization [facility] Address 1210 [facility] 36 [facility] [address] [place] [id number] Care Team Providers Care Sponge Packer Name Role Phone Fransisco Franks Primary Care Provider [phone] Joyce Espinoza [phone] Results Component Value Reference Range Notes H-Glycohemoglobin A1C (Not y et reviewed by provider) Interpretation: Performing Lab: Notes/Report: HGBA1C 5.7 4.0-6.0 % < 6% Non-Diabetic Level < 7% Controlled Diabetic Level > 8% Poorly Controlled Diabetic Level REASON FOR VISIT Test Results* Encounters Encounter Location Date Provider Diagnosis [facility] [address] [place] [id number] 08/12/2025 Joyce Espinoza Elevated glucose R73 .09 Assessments Encounter Date Diagnosis (ICD Code) Assessment Notes Treatment Notes Treatment Clinical Notes Section Notes 08/12/2025 Elevated glucose (ICD-10 - R73.09) Plan Of Treatment Pending Test Test Name Order Date H-Glycohemoglobin A1C 08/12/2025 Progress Notes * CANNONArnulfoprachiDOB:1970 ( 55 yo F)Acc No.[id number]:08/12/2025 Patient: Alisia RODRIGUEZ :1970 A ge:55 Y S ex:Female Address: [place] [address] Subjective: * Chief Complaints: * T est Results* * Medical History: * Surgical History: * Hospitalization/Major Diagno stic Procedure: * Medications: Objective: * Vitals: * Physical Examination: Assessment: * Assessment: 1. E levated glucose - R73.09 Plan: * Treatment: * Procedure Codes: * true * Date: Generated for Duy concepcion/Amelia/Rafael on: 10/20/2024 07:18 AM EST
--- NOTE | 2025-08-19 07:18 | US_ITS ---
FINAL REPORT CLINICAL HISTORY: .elev asa enzymrs-- nausea FINDINGS: RIGHT UPPER QUADRANT ULTRASOUND Technique: Ultrasound images of the right upper quadrant were obtained. There is fatty infiltration of the liver. There is a single large gallstone in the gallbladder. The common duct is normal measuring 4 mm. The right kidney is unremarkable. IMPRESSION: Fatty liver. Large gallstone. Reviewed, Interpreted and Dictated by Emeterio Cody MD Transcribed by Harini Trammell Authenticated and [facility]
--- OUTSIDE RECORDS SUMMARY | 2025-08-19 07:18 | XMS_ITS | Clinical Summary ---
Author Organization [facility] Address [address] [place] [address] Care Team Providers Care Cashier General Name Role Phone Unavailable Primary Care Provider Unavailabl e Source Comments [facility] is fully rolled out with thefollowing exceptions:General Clinical Research [facility] Social History Tobacco Use Types Packs/Day Years Used Date Smoking Tobacco: Never Assessed Comments Unknown Sex and Gender Information Value Date Recorded Sex Assigned at Not on file Legal Sex Female 5:13 AM EST Gender Identity Not on file Sexual Orientation Not on file Plan of Treatment Health Maintenance Due Date Last Done Comments MMR IMMUNIZATION (1 of 1 - S tandard series) 1970 DTAP/Tdap/Td IMMUNIZATION (1 - Tdap) 1976 Yearly Physical Ages 3-18+ 1980 VARICELLA IMMUNIZATION (1 of 2 - 13+ 2-dose series) 1982 HEPATITIS B IMMUNIZATION (1 of 3 - 19+ 3-dose series) 1988 AMB SEASONAL FLU VACCINE (#1) 05/11/2025 COVID-19 Vaccine ( - 2024-2 6 season) 2025 HIB IMMUNIZATION Aged Out No longer e ligible based on patient's age to complete this topic HPV IMMUNIZATION Aged Out No longer e ligible based on patient's age to complete this topic IPV IMMUNIZATION Aged Out No longer e ligible based on patient's age to complete this topic MCV4 IMMUNIZATION Aged Out No longer eligible based on patient's age to complete this topic MENINGOCOCCAL B VACCINE Aged Out No l onger eligible based on patient's age to complete this topic Respiratory Syncytial Virus (RSV) <20mo Aged Out No longer eligible b ased on patient's age to complete this topic
--- OUTSIDE RECORDS SUMMARY | 2025-08-19 07:18 | XMS_ITS | Patient Health Record ---
Author Organization [facility] Address [address] [facility] [address] [facility] [address] [place] [id number] Care Team Providers Care Electronic Warfare Officer Name Role Phone Fransisco Franks Primary Care Provider SeanJoyce walsh Unavailable [phone] Allergies No Known Allergies Results Component Value Reference Range Notes P-TSH reflex to FT4 Reviewed date:08/12/2025 10:52:22 AM Interpretation:Normal Performing Lab: Notes/Report: Test performed by [facility] [address] [place] [address] , [address], [place] [address] Heaven Jo MD, PhD, [facility], Timing Adjuster CLIA: [id number] TSH reflex to FT4 0.78 0.43-5.25 mU/L P-Lipid Panel Reviewed date:08/12/2025 10:52:22 AM Interpretation:TC 242, Trigs 236, HDL 40, TC/HDL 6.05, Non-HDL 202, LDL 155, LDL/HDL 3.87 Performing Lab: Notes/Report: Test performed by [facility] [address] [place] [address] , [address], [place] [address] Heaven Jo MD, PhD, [facility], Timing Adjuster CLIA: [id number] Lipid Panel Footnote See Below *Based on optimal reference values. Please refer to the DOS for additional information regarding diagnostic lipid reference ranges, patient management based on the recently updated lipid guidelines ([place] [employer]/[place] [employer] Task Force on Clinical Practice [...] Results: 155 Units: mg/dL % Change: - P-Comprehensive Metabolic Pa tyra (CMP) Reviewed date:08/12/2025 10:52:22 AM Interpretation:Glu 113, Alk Phos 230, ALT 94, AST 45 Performing Lab: Notes/Report: Test performed by [facility] , [address], [place] [address] Heaven Jo MD, PhD, FCAP, Timing Adjuster CLIA: [id number] Sodium 140 135-145 mmol/L Potassium 4.1 3.5-5.3 [...] 0.5 <0.2-1.2 mg/dL A/G Ratio 1.6 1.1-2.5 CBC Venipuncture (in house) Reviewed date:08/12/2025 10:52:22 [...] - 38 platlet 347 100 - 400 Mammogram Reviewed date:08/27/2024 08:18:36 AM Interpretation:DR BAH Performing Lab: Notes/Report: DR BAH H-Glycohemoglobin A1C (Not y et reviewed by provider) Interpretation: Performing Lab: Notes/Report: HGBA1C 5.7 4.0-6.0 % < 6% Non-Diabetic Level < 7% Controlled Diabetic Level > 8% Poorly Controlled Diabetic Level Medications Medication SIG (Take, Route, Frequency, Duration) Notes Start Date End Date Status Zomig 5 MG 1 tab(s) orally once . May repeat x1 in 2 hours Active Immunizations Vaccine Route Administration Date Status Comme nts Shingrix IM Intramuscular 08/25/2020 Administered Shingrix Unknown 12/31/2020 Administered COVID 19 Moderna Unknown 10/13/2020 Administered COVID 19 Moderna Unknown 07/28/2021 Administered Problems Problem Type SNOMED Code ICD Code Onset Dates Problem Status W/U Status Risk Notes Problem Irritable bowel syndrome (51546144) Irritable bowel syndrome (564.1) Active confirmed Problem History of malignant melanoma of the skin (177934473145) HX-MALIG SKIN MELANOMA (V10.82) Active confirmed Problem Migraine variant with headache (disorder) (718010904) Migraine headache (G43.909) Active confirmed Problem Dyslipidemia (770738618) Dyslipidemia (E78.5) Active confirmed Problem History of malignant melanoma of the skin (186183556818) Hx of melanoma of skin (Z85.820) Active confirmed Problem Irritable bowel syndrome (39598906) Mixed irritable bowel syndrome (K58.2) Active confirmed Vital Signs Heart Rate 98 /min 07/31/2025 Blood pressure diastolic 80 mm Hg 07/31/2025 Height 68 in 07/31/2025 Blood pressure systolic 126 mm Hg 07/31/2025 Weight 221 lbs 07/31/2025 BMI 33.6 kg/m2 07/31/2025 Encounters Encounter Location Date Provider Diagnosis [facility] [place] [id number] 07/31/2025 Joyce Crownico Migraine headache G43.909 ; Hx of melanoma of skin Z85.820 ; Dyslipidemia E78.5 and Colon cancer screening Z12.11 [facility] [place] [id number] 08/10/2025 Joyce Alexis Dyslipidemia E78.5 a nd Screening for thyroid disorder Z13.29 [facility] [place] [id number] 08/12/2025 Joyce Estradanico Elevated glucose R73 .09 Assessments Encounter Date Diagnosis (ICD Code) Assessment Notes Treatment Notes Treatment Clinical Notes Section Notes 08/12/2025 Elevated glucose (ICD-10 - R73.09) 07/31/2025 Hx of melanoma of skin (ICD-10 - Z85.820) 07/31/2025 Migraine headache (ICD-10 - G43.909) 08/10/2025 Screening for thyroid disorder (ICD-10 - Z13.29) 08/10/2025 Dyslipidemia (ICD-10 - E78.5) 07/31/2025 Dyslipidemia (ICD-10 - E78.5) Patient will come back for fasting labs: CBC, CMP, Lipid, TSH with reflex to Free T4 07/31/2025 Colon cancer screening (ICD-10 - Z12.11) Plan Of Treatment Pending Test Test Name Order Date H-Glycohemoglobin A1C 08/12/2025 Ultrasound : Abdomen limited 08/14/2025 Insurance Providers Payer Name Payer Address Payer Phone Subscriber Number Group Number Insured Name Patient Relationship to Insured Coverage Start Date Coverage End Date [employer] [address] [place] [address] [id number] Alisia Cannon Self - patient is the insured Medications Administered Medication Instructions Date of Administration Dosage Notes Bicillin LA 1,200,000 10/23/2012 2 mL Medical (General) History Medical History History ICD Code Melonoma (skin), leg and back Migraine headaches Hyperlipidemia Surgical History Surgery Date(Month/Year) melanoma right leg ~1991 melonoma back 2001 appendectomy 1986 endometriosis 2001 tubal ligation with 2002 Hospitalization History Reason Date(Month/Year) child 2002
== END 2025-08-19 23:59 | disposition home or self-care (01) ==
PROVIDERS: PCP Family Medicine; Visit Provider Physician Assistant
DX: K76.0 Fatty (change of) liver, not elsewhere classified (principal); K80.20 Calculus of gallbladder without cholecystitis without obstruction; R74.8 Abnormal levels of other serum enzymes
CPT/HCPCS: 76705

== ENCOUNTER 2025-09-07 16:06 | Outpatient (CLI) | payer BC, SELFPAY ==
--- OUTSIDE RECORDS SUMMARY | 2024-07-01 10:45 | XMS_ITS ---
Author Organization Gianluca Address [facility]0 [facility] [address] [place] [phone] Care Team Providers Care Chip Separator Name Role Phone Fransisco Franks Primary Care Provider [phone] Allergies No Known Allergies Reason For Referral Reason Right shoulder pain, possible impingement syndrome; failed physical therapy Diagnosis 1 Impingement syndrome of right shoulder (M75.41) Referral Organization [facility] Referring Provider First Name Fransisco Dean Referring Provider Last Name Golden Referring Provider Speciality Family Pra ctice Referred Provider Horacio Pop Referred Provider Specialty Orthopedic S urgery General Notes Martha Grover 024 8:36:06 AM > 07/08/2024 at 01:45pm; patient is calling to reschedule Referral Priority Routine REASON FOR VISIT COMPLETED THERAPY ON SHOULDER Medications Medication SIG (Take, Route, Frequency, Duration) Notes Start Date End Date Status Zomig 5 MG 1 tab(s) orally once . May repeat x1 in 2 hours 07/28/2022 Active Vital Signs Blood pressure systolic 124 mm Hg 07/01/20 24 Blood pressure diastolic 80 mm Hg 024 Heart Rate 76 /min 07/01/2024 Height 68 in 07/01/2024 Weight 221.2 lbs 07/01/2024 BMI 33.63 kg/m2 07/01/2024 Encounters Encounter Location Date Provider Diagnosis [facility] [facility] 36 [facility] [address] [place] [id number] 07/01/2024 Fransisco Franks Impingement syndrome of right shoulder M75.41 Assessments Encounter Date Diagnosis (ICD Code) Assessment Notes Treatment Notes Treatment Clinical Notes Section Notes 07/01/2024 Impingement syndrome of right shoulder (ICD-10 - M75.41) Plan Of Treatment Referrals Referral Date Details 07/01/2024 07/01/2024, Right sh oulder pain, possible impingement syndrome; failed physical therapy, Horacio Pop Next Appt Details Follow Up: prn, Reason: Progress Notes * Alisia CANNONDOB:1970 ( 55 yo F)Acc No.[id number]:07/01/2024 Progress Notes Patient: Alisia RODRIGUEZ Provider: Fransisco Franks M.D. :1970 A ge:54 Y S ex:Female Date:07/01/2024 Address: [facility], [id number] Subjective: * Chief Complaints: * 1 . COMPLETED THERAPY ON SHOULDER. * HPI: S houlder/Upper arm: Alisia returns with ongoing pain in her right shoulder that is unimproved and perhaps worse since her last visit. She completed 8 physical therapy visits that were approved by her insurance. She feels like range of motion improved but she still has pain with activity and is now even having pain at rest. She localizes the pain over the deltoid area. * ROS: D ERMATOLOGY: no R amanda. n o H tamika. G ASTROENTEROLOGY: no N ausea. n o V omiting. n o D iarrhea.? U ROLOGY: no D ifficulty urinating. n o B lood in urine. * Medical History: M elonoma (skin), leg and back, Migraine headaches, Hyperlipidemia. * Surgical History: m elanoma right leg ~1991, melonoma back 2001, appendectomy 1986, endometriosis 2001, tubal ligation with 2002. * Hospitalization/Major Diagno stic Procedure: c -section child 2002. * Family History: F ather: alive. M other: alive, breast cancer. M aternal Grand Mother: breast cancer.?2 sister(s) - healthy. 1 son(s) , 1 daughter(s) - healthy. . * Social History: C URRENT TOBACCO USE S moking Status: Patient does NOT smoke, Second hand smoke exposure: No. C affeine: yes, frequency:. Exercise: no. Home smoke detector use: yes. Marital Status: . Past smoking status: no. Alcohol: No. Sexually active: yes. * Medications: T aking Zomig 5 MG Tablet 1 tab(s) orally once. May repeat x1 in 2 hours , Medication List reviewed and reconciled with the patient * Allergies: N .K.D.A. Objective: * Vitals: W t:221.2, Temp:97.8, BP:124/80, HR:76, Nurse:ELIJAH, Ht: 68, BMI:33.63. * Examination: G eneral Examination: General Appearance: N o distress at rest. E xtremities:?Right shoulder shows no deformity. There is no bony tenderness. She has a painful arc and range of motion is limited to just past 90 degrees of abduction. She also has pain with internal rotation.. Assessment: * Assessment: 1. I mpingement syndrome of right shoulder - M75.41 (Primary) Plan: * Treatment: * Follow Up: p rn * Images: Billing Information: * Visit Code: 06257 Office Visit, Est Pt., Level 3. * Procedure Codes: * Electronic signature of Fransisco Franks MD on 09/07/2025 at 04:09 PM EST Sign off status: Pending * Provider: Fransisco Franks M.D. Date: Generated for Duy concepcion/Amelia/Rafael on: 04:09 PM EST History and Physical Notes * Examination Category Sub-Category Detail Notes Category Not es General Examination Extremities: Right should er shows no deformity. There is no bony tenderness. She has a painful arc and range of motion is limited to just past 90 degrees of abduction. She also has pain with internal rotation. General Appearance: No distress at rest Consultation Request Notes Referral Date Referring Provider Referred Provider Not es 07/01/2024 Fransisco Franks Gene Right shou lder pain, possible impingement syndrome; failed physical therapy
--- OUTSIDE RECORDS SUMMARY | 2025-07-31 08:45 | XMS_ITS ---
Author Organization [facility] Address 1210 [facility] [address] [place] [id number] Care Team Providers Care Chief Electrician Name Role Phone Fransisco Franks Primary Care Provider Joyce Espinoza [phone] Allergies No Known Allergies REASON FOR VISIT check up Medications Medication SIG (Take, Route, Frequency, Duration) Notes Start Date End Date Status Zomig 5 MG 1 tab(s) orally once . May repeat x1 in 2 hours Active Vital Signs Blood pressure systolic 126 mm Hg 07/31/20 25 Blood pressure diastolic 80 mm Hg 025 Heart Rate 98 /min 07/31/2025 Height 68 in 07/31/2025 Weight 221 lbs 07/31/2025 BMI 33.6 kg/m2 07/31/2025 Encounters Encounter Location Date Provider Diagnosis [facility] 1210 [facility] [address] [place] [id number] 07/31/2025 Joyce Espinoza Migraine headache G43.909 ; [...] * Alisia CANNONDOB:1970 ( 55 yo F)Acc No.[id number]:07/31/2025 Progress Notes Patient: Alisia RODRIGUEZ Provider: SHANTAL Ferguson :1970 A ge:55 Y S ex:Female Date:07/31/2025 Address:[place] [address], [id number] Pcp:Fransisco Franks Subjective: * Chief Complaints: * [...] * Images: Billing Information: * Visit Code: 63072 Office Visit, Est Pt., Level 4. * Procedure Codes: * Electronic signature of SHANTAL Chisholm on 09/07/2025 at 04:08 PM EST Sign off status: Pending * Provider: SHANTAL Ferguson Date: 09/30/2024 Generated for Duy concepcion/Amelia/Juanitting on: 04:08 PM EST History and Physical Notes * HPI [...]
--- OUTSIDE RECORDS SUMMARY | 2025-08-10 03:10 | XMS_ITS ---
Author Organization [facility] Address [address] [facility] [address] [place] [id number] Care Team Providers Care Cooler Tender Name Role Phone Fransisco Franks Primary Care Provider [phone] Joyce Espinoza Unavailable [phone] Allergies No Known Allergies Results Component Value Reference Range Notes CBC Venipuncture (in house) Reviewed date:08/12/2025 10:52:22 AM Interpretation:Normal Performing Lab: Notes/Report: Normal wbc 4.5 3.5 - 10 lymph 38.5% 15 - 50 mid 6.3% 2 - 15 gran 55.2% 35 - 80 rbc 4.99 3.5 - 5.5 hgb 14.6 11.5 - 16.5 hct 44.8 35 - 55 mcv 89.7 75 - 100 mch 29.2 25 - 35 mchc 32.5 31 - 38 platlet 347 100 - 400 P-Comprehensive Metabolic Pa tyra (CMP) Reviewed date:08/12/2025 10:52:22 AM Interpretation:Glu 113, Alk Phos 230, ALT 94, AST 45 Performing Lab: Notes/Report: Test performed by [facility] [address] [place] [address] , [address], [place] [address] Heaven Jo MD, PhD, AP, Marketing Information Coordinator CLIA: [id number] Sodium 140 135-145 mmol/L Potassium 4.1 3.5-5.3 mmol/L Chloride 105 97-108 mmol/L CO2 24 20-32 mmol/L Glucose 113 65-99 mg/dL BUN 16 6-20 mg/dL Creatinine 0.87 0.50-1.00 mg/dL Calcium 9.5 8.6-10.4 mg/dL eGFR by Creatinine 78 >59 mL/min/1.73m2 Protein 7.1 6.0-8.3 g/dL Albumin 4.4 3.5-5.3 g/dL Alkaline Phosphatase 230 41-145 IU/L ALT (SGPT) 94 <5-47 IU/L AST (SGOT) 45 <5-40 IU/L Bilirubin, Total 0.5 <0.2-1.2 mg/dL A/G Ratio 1.6 1.1-2.5 P-Lipid Panel Reviewed date:08/12/2025 10:52:22 AM Interpretation:TC 242, Trigs 236, HDL 40, TC/HDL 6.05, Non-HDL 202, LDL 155, LDL/HDL 3.87 Performing Lab: Notes/Report: Test performed by [facility] [address] [place] [address] , [address], [place] [address] Heaven Jo MD, PhD, [facility], Marketing Information Coordinator CLIA: [id number] Lipid Panel Footnote See Below *Based on optimal reference values. Please refer to the DOS for additional information regarding diagnostic lipid reference ranges, patient management based on the recently updated lipid guidelines ([employer] [employer] Heart Association Task Force on Clinical Practice Guidelines (2018), and pediatric diagnostic lipid reference values (<18 years old). Total Cholesterol 242 <200 mg/dL Triglycerides 236 <150 mg/dL HDL Cholesterol 40 >50 mg/dL Total Cholesterol / HDL Ratio* 6.05 <3.99 Rati o Non-HDL Cholesterol 202 <130 mg/dL LDL Cholesterol (Calculation) 155 <100 mg/dL LDL / HDL Ratio* 3.87 <1.99 Ratio LDL Cholesterol Patient History Test Date: 08/10/2025 LDL Results: 155 Units: mg/dL % Change: - P-TSH reflex to FT4 Reviewed date:08/12/2025 10:52:22 AM Interpretation:Normal Performing Lab: Notes/Report: Test performed by [facility] [address] [place] [address] , [address], [place] [address] Heaven Jo MD, PhD, [facility], Marketing Information Coordinator CLIA: [id number] TSH reflex to FT4 0.78 0.43-5.25 mU/L REASON FOR VISIT bloodwork Encounters Encounter Location Date Provider Diagnosis [facility] [address] [facility] [address] [place] [id number] 08/10/2025 Joyce Espinoza Dyslipidemia E78.5 a nd Screening for thyroid disorder Z13.29 Assessments Encounter Date Diagnosis (ICD Code) Assessment Notes Treatment Notes Treatment Clinical Notes Section Notes 08/10/2025 Dyslipidemia (ICD-10 - E78.5) 08/10/2025 Screening for thyroid disorder (ICD-10 - Z13.29) Plan Of Treatment No Information Progress Notes * Alisia CANNONDOB:1970 ( 55 yo F)Acc No.[id number]:08/10/2025 Patient: Alisia RODRIGUEZ Provider: SHANTAL Ferguson :1970 A ge:55 Y S ex:Female Date:08/10/2025 Address:[place] [id number] Pcp:Fransisco Franks Subjective: * Chief Complaints: * 1 . Bloodwork. * Medical History: M elonoma (skin), leg and back, Migraine headaches, Hyperlipidemia. * Allergies: N .K.D.A. Objective: * Vitals: Assessment: * Assessment: 1. D yslipidemia - E78.5 (Primary) 2 . S creening for thyroid disorder - Z13.29 Plan: * Treatment: Value Reference Range A /G Ratio 1.6 1.1-2.5 - * A lbumin 4.4 3.5-5.3 - g/dL * A lkaline Phosphatase 230 H 41-145 - IU/L * A LT (SGPT) 94 H <5-47 - IU/L * A ST (SGOT) 45 H <5-40 - IU/L * B ilirubin, Total 0.5 <0.2-1.2 - mg/dL * B UN 16 6-20 - mg/dL * C alcium 9.5 8.6-10.4 - mg/dL * C hloride 105 97-108 - mmol/L * C O2 24 20-32 - mmol/L * C reatinine 0.87 0.50-1.00 - mg/dL * G lucose 113 H 65-99 - mg/dL * P otassium 4.1 3.5-5.3 - mmol/L * S odium 140 135-145 - mmol/L * P rotein 7.1 6.0-8.3 - g/dL * e GFR by Creatinine 78 >59 - mL/min/1.73m2 * Hillary Bright 08/12/2025 10: 52:14 AM EST > See phone encounter ?LAB: P-Lipid Panel (Collection Date & Time - 08/10/2025 07:15 AM)?TC 242, Trigs 236, HDL 40, TC/HDL 6.05, Non-HDL 202, LDL 155, LDL/HDL 3.87* Value Reference Range C holesterol / HDL Ratio 6.05 H <3.99 - Ratio * C holesterol 242 H <200 - mg/dL * H DL Cholesterol 40 L >50 - mg/dL * L DL Cholesterol (Calculation) 155 H <100 - mg/d L * L DL/HDL Ratio 3.87 H <1.99 - Ratio * N on-HDL Cholesterol 202 H <130 - mg/dL * T riglycerides 236 H <150 - mg/dL * L ipid Panel Footnote See Below - * Hillary Bright 08/12/2025 10: 52:14 AM EST > See phone encounter 2.?Screening for thyroid disorder?LAB: P-TSH reflex to FT4 (Collection Date & Time - 08/10/2025 07:15 AM)? Normal* Value Reference Range T SH reflex to FT4 0.78 0.43-5.25 - mU/L * Hillary Bright 08/12/2025 10: 52:14 AM EST > See phone encounter * Labs: * L ab: CBC Venipuncture (in house) (Collection Date & Time - 08/10/2025) N ormal Value Reference Range w bc 4.5 3.5 - 10 * l ymph 38.5% 15 - 50 * m id 6.3% 2 - 15 * g ran 55.2% 35 - 80 * r bc 4.99 3.5 - 5.5 * h gb 14.6 11.5 - 16.5 * h ct 44.8 35 - 55 * m cv 89.7 75 - 100 * m ch 29.2 25 - 35 * m chc 32.5 31 - 38 * p latlet 347 100 - 400 * Amanda Garrido 08/10/2025 09:48: 12 AM EST > Hillary Bright 08/12/2025 10:52:14 AM EST > See phone encounter * Procedure Codes: 8 5025 CBC WITH AUTO DIFF, 49268 VENIPUNCT, ROUTINE* * Images: Billing Information: * Visit Code: * Procedure Codes: 03242 CBC WITH AUTO DIFF. 90080 VENIPUNCT, ROUTINE*. * Electronic signature of SHANTAL Chisholm on 09/07/2025 at 04:08 PM EST Sign off status: Pending * Provider: SHANTAL Ferguson Date: 10/11/2024 Generated for Duy concepcion/Amelia/eTransmleonel on: 04:08 PM EST
--- OUTSIDE RECORDS SUMMARY | 2025-08-12 05:48 | XMS_ITS ---
Author Organization [facility] Address 1210 [facility] [address] [place] [id number] Care Team Providers Care Research Worker Encyclopedia Name Role Phone Fransisco Franks Primary Care Provider Joyce Espinoza [phone] Results Component Value Reference Range Notes H-Glycohemoglobin A1C Reviewed date:08/20/2025 09:08:22 AM Interpretation:Normal Performing Lab: Notes/Report: HGBA1C 5.7 4.0-6.0 % < 6% Non-Diabetic Level < 7% Controlled Diabetic Level > 8% Poorly Controlled Diabetic Level REASON FOR VISIT Test Results* Encounters Encounter Location Date Provider Diagnosis [facility] 1210 [facility] [address] [place] [id number] 08/12/2025 Joyce Espinoza Elevated glucose R73 .09 Assessments Encounter Date Diagnosis (ICD Code) Assessment Notes Treatment Notes Treatment Clinical Notes Section Notes 08/12/2025 Elevated glucose (ICD-10 - R73.09) Plan Of Treatment No Information Progress Notes * CANNONArnulfoprachiDOB:1970 ( 55 yo F)Acc No.[id number]:08/12/2025 Patient: Alisia RODRIGUEZ :1970 A ge:55 Y S ex:Female Address:[place] [address] Subjective: * Chief Complaints: * T est Results* * Medical History: * Surgical History: * Hospitalization/Major Diagno stic Procedure: * Medications: Objective: * Vitals: * Physical Examination: Assessment: * Assessment: 1. E levated glucose - R73.09 Plan: * Treatment: * Procedure Codes: * true * Date: Generated for Duy concepcion/Amelia/Rafael on: 04:08 PM EST
--- OUTSIDE RECORDS SUMMARY | 2025-09-07 16:09 | XMS_ITS | Clinical Summary ---
Author Organization [facility] Address [facility] [place] [address] Care Team Providers Care Agronomy Technician Name Role Phone Unavailable Primary Care Provider Unavailabl e Source Comments [facility] is fully rolled out with thefollowing exceptions:General Clinical Research [facility] Social History Tobacco Use Types Packs/Day Years [...] age to complete this topic HPV IMMUNIZATION (No Doses Required) Completed IPV IMMUNIZATION Aged Out No longer e [...]
--- OUTSIDE RECORDS SUMMARY | 2025-09-07 16:09 | XMS_ITS | Patient Health Record ---
[facility] Address [address] [facility] [address] [place] [id number] Care Team Providers Care Arch Pad Cementer Name Role Phone Fransisco Franks Primary Care Provider Seannico Joyce Unavailable [phone] Allergies No Known Allergies Results Component Value Reference Range Notes H-Glycohemoglobin A1C Reviewed date:08/20/2025 09:08:22 AM Interpretation:Normal Performing Lab: Notes/Report: HGBA1C 5.7 4.0-6.0 % < 6% Non-Diabetic Level < 7% Controlled Diabetic Level > 8% Poorly Controlled Diabetic Level Ultrasound : Abdomen limited Reviewed date:08/21/2025 03:46:07 PM Interpretation:Fatty Liver, Large Gallstone Performing Lab: Notes/Report: Fatty Liver, Large Gallstone CBC Venipuncture (in house) Reviewed date:08/12/2025 10:52:22 [...] 45 Performing Lab: Notes/Report: Test performed by [facility] , [address], [place] [address] Heaven Jo MD, PhD, FCAP, Geochemistry Teacher CLIA: [id number] Sodium 140 135-145 mmol/L Potassium 4.1 3.5-5.3 [...] 3.87 Performing Lab: Notes/Report: Test performed by [facility], [address] , [address], [place] [address] Heaven Jo MD, PhD, [facility], Geochemistry Teacher CLIA: [id number] Lipid Panel Footnote See Below *Based on optimal reference values. Please refer to the DOS for additional information regarding diagnostic lipid reference ranges, patient management based on the recently updated lipid guidelines ([place] College of Cardiology/[place] Heart Association Task Force on Clinical Practice [...] Interpretation:Normal Performing Lab: Notes/Report: Test performed by [facility], [address] , [address], [place] [address] Heaven Jo MD, PhD, [facility], Geochemistry Teacher CLIA: [id number] TSH reflex to FT4 0.78 0.43-5.25 mU/L Medications Medication SIG (Take, Route, Frequency, Duration) [...] Status Risk Notes Problem Irritable bowel syndrome (12150782) Irritable bowel syndrome (564.1) Active confirmed Problem History of malignant melanoma of the skin (330294003331) HX-MALIG SKIN MELANOMA (V10.82) Active confirmed Problem Migraine variant with headache (disorder) (644967334) Migraine headache (G43.909) Active confirmed Problem Dyslipidemia (482744847) Dyslipidemia (E78.5) Active confirmed Problem History of malignant melanoma of the skin (665934813806) Hx of melanoma of skin (Z85.820) Active confirmed Problem Irritable bowel syndrome (38855251) Mixed irritable bowel syndrome (K58.2) Active confirmed Vital Signs Heart Rate 98 /min 07/31/2025 Blood pressure diastolic 80 mm Hg 07/31/2025 Height 68 in 07/31/2025 Blood pressure systolic 126 mm Hg 07/31/2025 Weight 221 lbs 07/31/2025 BMI 33.6 kg/m2 07/31/2025 Encounters Encounter Location Date [facility] [address] [place] [id number] 07/31/2025 Joycefadi Espinoza Migraine headache G43.909 ; Hx of melanoma of skin Z85.820 ; Dyslipidemia E78.5 and Colon cancer screening Z12.11 [facility] [address] [place] [id number] 08/10/2025 Joyce Espionza Dyslipidemia E78.5 a nd Screening for thyroid disorder Z13.29 [facility] [address] [place] [address] [place] [id number] 08/12/2025 Joyce Espinoza Elevated glucose R73 .09 [facility] [address] [place] [address] [place] [id number] 08/21/2025 Joyce Espinoza Assessments Encounter Date Diagnosis (ICD Code) Assessment Notes Treatment Notes Treatment Clinical Notes Section Notes 07/31/2025 Migraine headache (ICD-10 - G43.909) 07/31/2025 Hx of melanoma of skin (ICD-10 - Z85.820) 08/10/2025 Screening for thyroid disorder (ICD-10 - Z13.29) 08/10/2025 Dyslipidemia (ICD-10 - E78.5) 08/12/2025 Elevated glucose (ICD-10 - R73.09) 07/31/2025 Dyslipidemia (ICD-10 - E78.5) Patient will come back for fasting labs: CBC, CMP, Lipid, TSH with reflex to Free T4 07/31/2025 Colon cancer screening (ICD-10 - Z12.11) Plan Of Treatment No Information Insurance Providers Payer Name Payer Address Payer Phone Subscriber Number Group Number Insured Name Patient Relationship to Insured Coverage Start Date Coverage End Date [employer] [address] [place] [address] [id number] Alisia Cannon Self - patient is [...]
--- NOTE | 2025-09-07 16:15 | MM_ITS ---
PROCEDURE INFORMATION: Exam: MG Bilateral Screening 3D Mammography MG Radiologist Consultation Exam date and time: 09/07/2025 4:06 PM Age: 55 years old Clinical indication: Screening examination TECHNIQUE: Imaging protocol: Bilateral Screening tomosynthesis and 2D mammography including computer-aided detection (CAD) when performed. COMPARISON: MG MM DIG SCREENING MAMM BI W/CAD 08/21/2024 1:07 PM FINDINGS: MAMMOGRAPHY: Breast composition: There are scattered areas of fibroglandular density. Mass: None. Architectural distortion: None. Calcifications: No suspicious calcifications. Asymmetric density: None. Skin thickening: None. Axillary adenopathy: None. IMPRESSION: No mammographic evidence of malignancy. Annual screening is recommended unless otherwise clinically indicated. ASSESSMENT: BI-RADS Category 1: Negative.
== END 2025-09-07 23:59 | disposition home or self-care (01) ==
LOC: RAD 16:06
PROVIDERS: PCP Family Medicine; Visit Provider Nurse Practitioner Obstetrics & Gynecology
DX: Z12.31 Encounter for screening mammogram for malignant neoplasm of breast (principal); R92.323 Mammographic fibroglandular density, bilateral breasts
CPT/HCPCS: 77063; 77067